=== PATIENT | male | born 1945 | race Caucasian/White ===

== ENCOUNTER 2020-05-15 20:00 | Outpatient (CLI) | payer MEDICARE, OTHER, SELFPAY | END 2020-05-15 20:01 | disposition home or self-care (01) | LOC: SLEEP 05-16 08:57 | PROVIDERS: Family Provider Family Medicine; Visit Provider Family Medicine | DX: G47.10 Hypersomnia, unspecified (principal) | CPT/HCPCS: 95810 ==

== ENCOUNTER 2020-10-22 15:36 | Outpatient (CLI) | payer MEDICARE, SELFPAY ==
--- NOTE | 2020-10-22 15:49 | XR_ITS ---
WS: [id number] LEFT HIP HISTORY: HIP JOINT Pain, left COMPARISON: None available. LEFT hip: No acute fracture or dislocation. Mild diffuse narrowing of the hip joint. No significant o steophytosis. No bone destruction. Mild vascular calcifications in the visualized femoral artery. XR/XR hip LT 2-3V wo/w pel* [id number] IMPRESSION: 1. No hip fracture. 2. Mild narrowing of the LEFT hip joint.
== END 2020-10-22 15:37 | disposition home or self-care (01) ==
PROVIDERS: Visit Provider Clinical Nurse Specialist Adult Health
DX: M25.552 Pain in left hip (principal)
CPT/HCPCS: 73502

== ENCOUNTER 2020-10-28 06:00 | Outpatient (RCR) | payer MEDICARE, SELFPAY | END 2020-11-13 23:59 | disposition home or self-care (01) | LOC: SPT 06:00 | PROVIDERS: Referring Provider Clinical Nurse Specialist Adult Health; Visit Provider Clinical Nurse Specialist Adult Health | DX: S76.212S Strain of adductor muscle, fascia and tendon of left thigh, sequela (principal); X58.XXXS Exposure to other specified factors, sequela | CPT/HCPCS: 97110; 97161 ==

== ENCOUNTER 2020-11-14 06:00 | Outpatient (RCR) | payer MEDICARE, SELFPAY | END 2020-12-14 23:59 | disposition home or self-care (01) | LOC: SPT 06:00 | PROVIDERS: Referring Provider Clinical Nurse Specialist Adult Health; Visit Provider Clinical Nurse Specialist Adult Health | DX: S76.212S Strain of adductor muscle, fascia and tendon of left thigh, sequela (principal) | CPT/HCPCS: 97110 ==

== ENCOUNTER → 2021-09-07 08:37 | Outpatient (BNVA) | payer MEDICARE, SELFPAY | PROVIDERS: Visit Provider Family Medicine | DX: E11.9 Type 2 diabetes mellitus without complications (principal); Z13.220 Encounter for screening for lipoid disorders; Z51.81 Encounter for therapeutic drug level monitoring | CPT/HCPCS: 80053; 80061; 83036; 85025 ==

== ENCOUNTER → 2021-11-06 08:52 | Outpatient (BNVA) | payer MEDICARE, SELFPAY | PROVIDERS: PCP Family Medicine; Referring Provider Family Medicine; Visit Provider Student in an Organized Health Care Education/Training Program | DX: M00.9 Pyogenic arthritis, unspecified (principal); M10.9 Gout, unspecified | CPT/HCPCS: 73130; 99204 ==

== ENCOUNTER 2021-11-06 10:11 | Day surgery (SDC) | payer MEDICARE, SELFPAY ==
[2021-11-06] VITALS (8 sets, daily range): BP systolic 110–142; BP diastolic 61–87; PULSE 48–57; RESP 12–18; TEMP 36.5–37.2; O2SAT 97–100; BMI 40.1
--- NOTE | 2021-11-06 10:55 | W.PM.OPSUD ---
Surgery/Procedure H&P Update DATE OF PROCEDURE: November 06, 2021 DATE H&P PERFORMED: 11/06/21 CHANGES TO PREVIOUS DOCUMENTATION: None PREOP DIAGNOSIS: Right small finger septic PIP joint PRIMARY INDICATION FOR PROCEDURE: Preop diagnosis PLANNED PROCEDURE: Operation Date: 11/06/21 12:10 Proposed Procedures p RIGHT SMALL FINGER IRRIGATION AND DEBRIDEMENT 60849,M79.643(Right) - Maurisio Tomas DO
--- NOTE | 2021-11-06 11:19 | ANES.PREANE2 ---
Pre-Anesthetic Assessment Height/Weight: Temp Pulse Resp BP Pulse Ox O2 Del Method 97.7 F 50 L 18 131/61 97 11/06/21 10:46 11/06/21 10:46 11/06/21 10:46 11/06/21 10:46 11/06/21 10:46 11/06/21 10:46 Preop Diagnosis: Right small finger septic PIP joint Operation Date: 11/06/21 12:10 Proposed Procedures p RIGHT SMALL FINGER IRRIGATION AND DEBRIDEMENT 77470,M79.643(Right) - Maurisio [place], Familial anesthetic complications: None Was Beta Chip taken within 24 hours: Yes Was Clonidine taken within 24 hours: N/A Last intake: 8hrs Social No alcohol and No tobacco Exam alert, oriented x 3, clear to auscultation bilaterally and regular rate & rhythm Airway Mallampati: Class III Dentition: full CV/HEM Hypertension Chronic Renal Insufficiency Metabolic Diabetes Mellitus and Morbid Obesity Anesthetic Plan ASA status: 3 Anesthesia: MAC Risk of > 500 ml blood loss (7ml/kg in children): No Medications/Allergies Home Medications Medication Instructions Recorded Confirmed Last Taken Type dulaglutide 1.5 mg/0.5 mL 1.5 mg (0.5 mL) SUBCUT .once a 09/10/21 11/06/21 Unknown Rx subcutaneous pen injector week #2 mL (Trulicity) furosemide 40 mg tablet 40 mg PO TID 09/10/21 11/06/21 Unknown History insulin detemir U-100 100 unit/mL 90 unit SUBCUT BID 09/10/21 11/06/21 Unknown History subcutaneous solution (Levemir U-100 Insulin) sildenafil 100 mg tablet 100 mg PO DAILY PRN 09/10/21 11/06/21 Unknown History simvastatin 20 mg tablet 20 mg PO DAILY 09/10/21 11/06/21 Unknown History tamsulosin 0.4 mg capsule 0.4 mg PO DAILY 09/10/21 11/06/21 Unknown History indomethacin 50 mg capsule 50 mg PO Q8H PRN gout #15 caps 10/18/21 11/06/21 Unknown Rx hydrocodone 5 mg-acetaminophen 325 1 tab PO Q6H PRN pain 15 days #30 11/05/21 11/06/21 Unknown Rx mg tablet tabs levofloxacin 500 mg tablet 500 mg PO DAILY #10 tabs 11/05/21 11/06/21 Unknown Rx mupirocin 2 % topical ointment 1 applic topical BID #15 grams 11/05/21 11/06/21 Unknown Rx atenolol 25 mg tablet mg 11/06/21 Unknown History lisinopril 40 mg tablet 40 mg PO DAILY 11/06/21 11/06/21 11/06/21 History potassium chloride 20 mEq 20 meq PO DAILY 11/06/21 11/06/21 11/05/21 History tablet,extended release Allergies Allergy/AdvReac Type Severity Reaction Status Date / Time No Known Allergies Allergy Unverified 11/06/21 08:55 [facility] Anesthesia Medical History (Updated 11/06/21 @ 09:47 by Maurisio Tomas DO) Gout of right hand Surgical History H/O umbilical hernia repair With mesh placement History of tonsillectomy Social History Alcohol intake: never Data Anesthesia Cardiac Studies: No Data to Display
[2021-11-06] MEDS: acetaminophen 1,000 MG/100 ML PIGGYBACK 400 MG IV (11:20)
[2021-11-06] MEDS: ketorolac 30 mg/mL INJ IVP (11:21)
[2021-11-06] MEDS: sodium chloride 0.9% 1,000 ML 30 ML IV (11:22)
[2021-11-06 11:28] LABS: Glucose Point of Care 155 mg/dL (70-110)
[2021-11-06] MEDS: ceFAZolin 2,000 MG in sodium chloride 0.9% (plus) 50 ML 100 MG IV (11:47)
[2021-11-06] MEDS: lidocaine 1% INJ 20 mL 5 ML XX (12:40)
--- NOTE | 2021-11-06 12:50 | PM.OP2 ---
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 We will follow patient's intraoperative cultures as well as crystals. We will discharge patient on indomethacin. He does have antibiotic as well as pain medication from yesterday from his primary care physician which she can continue. May contact the office for any refills needed. We will continue to await cultures. We will follow-up in the office in 2 weeks. Given appropriate discharge instruction as well as pain medication. Condition: stable Disposition: same day Coding Level of Care Code Acute [employer] for Tony Henderson
--- NOTE | 2021-11-06 12:52 | P.OP_ITS ---
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 Post-op findings: See procedure note for details Procedure done: Right small finger irrigation and debridement with cultures 4 cm x 2 cm x 1 cm Implants: None Specimens removed/disposition: PIP joint fluid swab for aerobic and anaerobic cultures PIP joint fluid specimens taken and sent for crystals Surgeon: Maurisio Tomas DO Estimated blood loss (mL): 2 Esmarch tourniquet used 15min IV fluids: See anesthesia record Complications: None Findings: See operative note for details Condition: stable Disposition: same day Brief History: Fidel presented to my office today as a pleasant 76-year-old male with right small finger PIP joint pain and swelling. He was initially seen evaluated earlier in the month by urgent care was diagnosed with gout and treated appropriately. He has had persistent worsening pain and swelling and redness. Was seen yesterday by his primary care physician with concerns for septic PIP joint of the right small finger. He is referred to my office for evaluation. On my evaluation patient's findings show pain with micromotion decreased range of motion erythema and swelling and palpable fluctuance over the dorsal aspect of the right small finger. Findings are concerning for a right septic PIP joint. Given the erosive changes noted on radiographic imaging as well as failure of response to conservative treatment for gout we shared in detail discussion with the patient as well as in the office today about nonoperative versus operative intervention. Ultimately through shared decision- making elected to proceed with a right small finger irrigation and debridement with cultures. Risks include but are not limited to make it better, make it worse, injury to nerves or vessels, decreased range of motion, persistent stiffness and pain, chance for worsening infections or further surgery. This understanding of his risk patient agrees to proceed with surgery. Consent was obtained in the office for right small finger irrigation and debridement. Patient understands agrees with current plan. All questions answered. Procedure: Patient was seen evaluated in preoperative holding area. Consent was reviewed with patient. Small finger was marked on the right side. Patient was seen evaluated by the preoperative team as well as anesthesia. Once cleared for surgery patient was taken to the operative suite placed on the OR table in supine position with an armboard to the right upper extremity. Patient then underwent anesthesia per the anesthesia department. Patient's right upper extremity was prepped and draped in standard orthopedic fashion. Prior to incision sterile local injection of 5 mL of lidocaine 2% and 5 mL of ropivacaine were then injected as a digital block to the right small finger. Once appropriately anesthetized a Esmarch tourniquet was used exsanguinate the right upper extremity and an Esmarch tourniquet was stopped at the mid forearm for bleeding control. At this point patient's palpable fluctuance over the dorsal aspect of the PIP joint of the small finger was identified and a standard curvilinear incision was made with care to not violate the possible attenuated tissue dorsally. Incision length was 5 cm. Sharp scalpel excision with 15 blade was made through skin and subcutaneous tissue. I then utilized blunt Littler dissection scissors to spread and immediately encountered significant amount of white crystalline type fluid. This was cultured for aerobic and anaerobic cultures which were taken and sent for microbiology. Also I took large specimens of fluid and crystalline deposits and these were sent for pathology for evaluation for crystals. This did not look purulent in nature or infection in nature. 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 Significant synovitis and crystalline deposits with complete destruction of the articular cartilage was noted of the right PIP joint. The bone was probed gently and there was no evidence of bone softening or signs of osteo myelitis or infection. At this point I debrided the wound bed which extended 4 cm x 2 cm x 1 cm scalpel excision was used to skin subcutaneous fat as well as tendon fascia synovitis swell a small debridements of bone that were crystal deposits. This was performed with a sharp scalpel excision as well as rongeur. Care was made to not excessively debride the entire extensor tendon and care was to leave what was left of the extensor tendon intact. Wound bed was then thoroughly irrigated at this point was satisfied with my debridement. The rents in the dorsal capsule and extensor mechanism at the PIP joint were then reapproximated with 4-0 Monocryl suture in interrupted fashion. Next the tourniquet was deflated. Bipolar electrocautery was used to maintain exact hemostasis. This point wound bed was thoroughly irrigated once more and the skin edges were reapproximated with interrupted 4-0 nylon suture. Incisions were then covered with Xeroform 4 x 4's Feliciano wrap and Vinnie wrap. Patient was awakened from anesthesia and taken to PACU in stable condition Disposition: Patient given appropriate discharge instructions will recover in PACU until pain control as well as tolerating diet. Cultures as well as crystals were sent for micro and pathology. The standpoint we will continue to wait final definitive diagnosis. Patient should continue with indomethacin as well as antibiotic and narcotic pain medication given from primary care yesterday. Understands if there is any issues or needs refills may contact the office. Patient given appropriate dressing management and will follow-up with me in office in 2 weeks. Patient understands agrees with current plan. All questions answered.
--- NOTE | 2021-11-06 12:52 | PM.PACU ---
PACU note Narrative: Patient recovering in PACU. Patient will discharge home later today. Dressing on in place clean dry and intact. Patient able to wiggle fingers. Decreased sensation secondary to digital block to right small finger. Finger tips warm well perfused. Brisk capillary refill less than 2 seconds. Exam: awake (See narrative exam for details) Disposition: discharged
--- NOTE | 2021-11-06 13:35 | ANE.PACU2 ---
Inpatient post-anesthesia follow up: Airway intact: Yes Vital signs: Temperature 97.9 F Pulse Rate 48 Respiratory Rate 18 Blood Pressure 126/69 Pulse Oximetry 99 Oxygen Delivery Me thod Room Air Oxygen Flow Rate Fraction of Inspir ed Oxygen Hydration adequate: Yes Nausea and vomiting: No Pain level: 1 Mental status: Baseline
== END 2021-11-06 14:10 | disposition home or self-care (01) ==
PROVIDERS: PCP Family Medicine; Visit Provider Student in an Organized Health Care Education/Training Program
PROC: (CPT 11010; principal; 2021-11-06 12:00)
DX: M10.041 Idiopathic gout, right hand (principal); I10 Essential (primary) hypertension; E11.9 Type 2 diabetes mellitus without complications; E66.01 Morbid (severe) obesity due to excess calories; Z68.41 Body mass index [BMI] 40.0-44.9, adult; Z79.4 Long term (current) use of insulin; M00.9 Pyogenic arthritis, unspecified; M10.9 Gout, unspecified
CPT/HCPCS: 11010; 36416; 73130; 82962; 87070; 87075; 87205; 99204; J1885; J2704; J2795; J3010; J7030

== ENCOUNTER → 2021-11-23 10:08 | Outpatient (BNVA) | payer MEDICARE, SELFPAY | PROVIDERS: PCP Family Medicine; Visit Provider Student in an Organized Health Care Education/Training Program | DX: M10.9 Gout, unspecified (principal) | CPT/HCPCS: 99024 ==

== ENCOUNTER → 2021-12-14 09:15 | Outpatient (BNVA) | payer MEDICARE, SELFPAY | PROVIDERS: PCP Family Medicine; Visit Provider Family Medicine | DX: E11.9 Type 2 diabetes mellitus without complications (principal); Z51.81 Encounter for therapeutic drug level monitoring; I10 Essential (primary) hypertension; M10.9 Gout, unspecified | CPT/HCPCS: 80053; 83036; 85025 ==

== ENCOUNTER → 2022-01-11 08:19 | Outpatient (BNVA) | payer MEDICARE, SELFPAY | PROVIDERS: PCP Family Medicine; Visit Provider Student in an Organized Health Care Education/Training Program | DX: M25.571 Pain in right ankle and joints of right foot (principal) | CPT/HCPCS: 73560; 73565; 73600; 99214; J3301 ==

== ENCOUNTER → 2022-01-28 08:55 | Outpatient (BNVA) | payer MEDICARE, SELFPAY | PROVIDERS: PCP Family Medicine; Visit Provider Podiatrist Foot & Ankle Surgery | DX: M25.571 Pain in right ankle and joints of right foot (principal); M25.572 Pain in left ankle and joints of left foot; E11.9 Type 2 diabetes mellitus without complications; Z79.4 Long term (current) use of insulin | CPT/HCPCS: 20550; 99204 ==